=== PATIENT | male | born 1975 | race African-American/Black ===

== ENCOUNTER 2016-11-04 10:36 | Inpatient (IN) | payer MEDICAID ==
[~2016-11-04] VITALS: Ht 182.9 cm; Wt 71.9 kg
[2016-11-04] MEDS ORDERED: SODIUM CHLORIDE 0.9% 1,000 ML IVB ONE (10:53)
[2016-11-04] MEDS ORDERED: ONDANSETRON HCL 4 MG/2 ML VIAL IV ONE ×2 (11:00→17:15)
[2016-11-04] MEDS ORDERED: MORPHINE SULFATE 4 MG/ML SYRG IV ONE (11:00)
[2016-11-04 11:14] LABS: Basophils # (auto) 0 uL; Eosinophils # (auto) 0 uL; Hematocrit 31.6 % (41.0-53.0); Lymphocytes # (auto) 0.5 uL; Lymphocytes % (auto) 2.1 % (10.0-50.0); Mean Corpuscular Hemoglobin 29.2 pg (28.0-32.0); Mean Corpuscular Hgb Conc. 31.7 g/dL (32.0-36.0); Mean Platelet Volume 8.7 fL (7.4-10.4); Monocytes % (auto) 4.4 % (0.0-12.0); Neutrophils # (auto) 21.3 uL; Neutrophils % (auto) 93.5 % (37.0-80.0); Platelet Count (auto) 606 10^3/uL (140-450); Red Cell Distribution Width 15.4 % (11.6-16.0); SUSPECT VIEW TRANSMISSION; White Blood Cell 22.8 10^3/uL (4.4-10.8)
[2016-11-04] MEDS ORDERED: PIPERACILLIN-TAZOB 3.375GM 100 ML IV ONE ×2 (11:30→20:23)
[2016-11-04 11:37] LABS: INR 1.06 (0.9-1.15); Prothrombin Time 10.9 sec (9.37-12.3)
[2016-11-04 11:41] LABS: Albumin 3.2 g/dL (3.4-5.0); BUN/Creatinine Ratio 7.8; Bilirubin, Total 0.6 mg/dL (0.2-1.0); Calcium 9.3 mg/dL (8.5-10.1); Magnesium 2.4 mg/dL (1.6-2.6); Potassium 3.9 mmol/L (3.5-5.1); Total Protein 6.7 g/dL (6.4-8.2)
[2016-11-04 11:54] LABS: Lactic Acid 6.1 mmol/L (0.4-2.0)
[2016-11-04 11:56] LABS: REFLEX LACTIC ACID YES OR NO YES
[2016-11-04] MEDS ORDERED: SODIUM CHLORIDE 0.9% 1,000 ML IV ONE (12:15)
[2016-11-04 13:06] LABS: B-Type Natriuretic Peptide 17.42 pg/mL (0-100)
[2016-11-04] MEDS ORDERED: PANTOPRAZOLE SODIUM 40 MG/10 ML VIAL IV ONE (13:30)
[2016-11-04] MEDS: LACTATED RINGER'S 1,000 ML IV SCH (13:30)
[2016-11-04] MEDS ORDERED: MORPHINE SULF INJ 2 MG/ML SYRINGE 1ML IV PRN (13:30)
[2016-11-04] MEDS ORDERED: ALBUTEROL SULF 2.5 MG/0.5ML(0.5%) NEB SOLN NEB PRN (13:30)
[2016-11-04] MEDS ORDERED: NITROGLYCERIN 0.4 MG SL TAB SL PRN (13:30)
[2016-11-04] MEDS ORDERED: ONDANSETRON HCL 4 MG/2 ML VIAL ONE (14:09)
[2016-11-04] MEDS ORDERED: HYDROmorphone HCL 2 MG/ML VL ONE (14:10)
[2016-11-04] MEDS ORDERED: BUPIVACAINE 0.25% INJ 50ML VIAL ONE (14:30)
[2016-11-04] MEDS ORDERED: BUPIVACAINE W/ EPINEPH 0.25% INJ 50ML MDV ONE (14:30)
[2016-11-04] MEDS ORDERED: IOHEXOL 300 MG/ML 100ML BOTTLE IJ ONE (14:31)
[2016-11-04 14:35] LABS: Lactic Acid 3.3 mmol/L (0.4-2.0)
[2016-11-04 14:53] LABS: REFLEX LACTIC ACID YES OR NO NO
[2016-11-04] MEDS ORDERED: ROCURONIUM 10MG/ML 10ML VIAL IV ONE (15:06)
[2016-11-04] MEDS ORDERED: NEOSTIGMINE 1 MG/ML INJ (10mg/10ML VIAL) IV ONE (15:06)
[2016-11-04] MEDS ORDERED: PROPOFOL 10 MG/ML 20 ML IV ONE (15:06)
[2016-11-04] MEDS ORDERED: SUCCINYLCHOLINE CHLORIDE 20 MG/ML 10ML VIAL IV ONE (15:06)
[2016-11-04] MEDS ORDERED: fentaNYL CITRATE 100 MCG/2 ML VL ONE ×2 (15:06→16:47)
[2016-11-04] MEDS ORDERED: GLYCOPYRROLATE 0.2 MG/ML 1ML VIAL IV ONE (15:06)
[2016-11-04] MEDS ORDERED: MIDAZOLAM HCL 1MG/1ML-2 ML VIAL ONE ×2 (15:06→15:30)
[2016-11-04] MEDS ORDERED: D5W/SOD CHL 0.45%/KCL 20MEQ 1,000 ML IV SCH (17:00)
[2016-11-04] MEDS ORDERED: ePHEDrine SULFATE 50 MG/ML AMP IV PRN (17:15)
[2016-11-04] MEDS ORDERED: HYDROmorphone HCL 2 MG/ML VL IV PRN (17:15)
[2016-11-04] MEDS ORDERED: hydrALAZINE HCL 20 MG/ML VL IV PRN (17:15)
[2016-11-04] MEDS ORDERED: ACETAMINOPHEN IV 100 ML IV ONE ×2 (17:42→17:45)
[2016-11-04] MEDS ORDERED: PIPERACILLIN-TAZOB 3.375GM 100 ML IV SCH (18:00)
[2016-11-04] MEDS ORDERED: HYDROmorphone HCL 2 MG/ML VL IV ONE (18:00)
[2016-11-04 20:00] VITALS: BP 98/72
[2016-11-04] MEDS: HYDROmorphone HCL 2 MG/ML VL IV PRN ×2 (20:01→23:51)
[2016-11-04] MEDS: ONDANSETRON HCL 4 MG/2 ML VIAL IV PRN (20:39)
[2016-11-04 21:00] VITALS: BP 96/68
[2016-11-04 22:00] VITALS: BP 100/72
[2016-11-04 23:00] VITALS: BP_SYST 112; BP_SYST 120; BP_DIAS 70; BP_DIAS 76
[2016-11-05] VITALS (12 sets, daily range): BP systolic 101–135; BP diastolic 60–82
[2016-11-05] MEDS: HYDROmorphone HCL 2 MG/ML VL IV PRN ×4 (03:36→22:32)
[2016-11-05 03:44] LABS: Hematocrit 28.3 % (41.0-53.0); Hemoglobin 8.8 g/dL (13.5-17.5); Mean Corpuscular Hemoglobin 28.8 pg (28.0-32.0); Mean Corpuscular Hgb Conc. 31.2 g/dL (32.0-36.0); Mean Corpuscular Volume 92.3 fL (80.0-100.0); Mean Platelet Volume 8.7 fL (7.4-10.4); Platelet Count (auto) 432 10^3/uL (140-450); Red Cell Distribution Width 15.4 % (11.6-16.0); SUSPECT VIEW TRANSMISSION
[2016-11-05 03:51] LABS: Myelocytes % 0; Promyelocytes % 0; Reactive Lymphocytes 0
[2016-11-05 03:58] LABS: Albumin 1.9 g/dL (3.4-5.0); Calcium 8.2 mg/dL (8.5-10.1); Potassium 4.6 mmol/L (3.5-5.1)
[2016-11-05 04:00] LABS: BUN/Creatinine Ratio 10.9
[2016-11-05 04:03] LABS: Bilirubin, Total 0.5 mg/dL (0.2-1.0); Total Protein 4.8 g/dL (6.4-8.2)
[2016-11-05 04:31] LABS: Anisocytosis Slight; Metamyelocytes % 1; Ovalocytes FEW; Platelet Estimate Adequate
[2016-11-05] MEDS ORDERED: PIPERACILLIN-TAZOB 3.375GM 100 ML IV ONE (04:52)
[2016-11-05] MEDS ORDERED: cefTRIAXone 1GM/50ML D5W 50 ML IV SCH (09:00)
[2016-11-05] MEDS ORDERED: PANTOPRAZOLE SODIUM 40 MG/10 ML VIAL IV SCH (10:00)
[2016-11-05] MEDS: PANTOPRAZOLE SODIUM 40 MG/10 ML VIAL IV SCH (11:00)
[2016-11-05] MEDS: PIPERACILLIN-TAZOB 3.375GM 100 ML IV SCH ×3 (12:00→23:35)
[2016-11-05] MEDS: LACTATED RINGER'S 1,000 ML IV SCH ×2 (18:00→21:30)
[2016-11-06] VITALS (12 sets, daily range): BP systolic 109–132; BP diastolic 63–77
[2016-11-06] MEDS: HYDROmorphone HCL 2 MG/ML VL IV PRN ×5 (03:06→19:19)
[2016-11-06 03:37] LABS: Urine Bilirubin Negative (Negative); Urine Blood TRACE /uL (Negative); Urine Color Yellow (Yellow); Urine Glucose Normal (Normal); Urine Ketone TRACE (Negative); Urine Nitrite Negative (Negative); Urine RBC 4 /hpf (0 - 3); Urine Urobilinogen Normal (Negative)
[2016-11-06 05:26] LABS: DEFINITIVE VIEW TRANSMISSION; Hematocrit 21.8 % (41.0-53.0); Mean Corpuscular Hemoglobin 28.9 pg (28.0-32.0); Mean Corpuscular Hgb Conc. 32.1 g/dL (32.0-36.0); Mean Corpuscular Volume 90.2 fL (80.0-100.0); Mean Platelet Volume 9.2 fL (7.4-10.4); Platelet Count (auto) 305 10^3/uL (140-450); Red Cell Distribution Width 16.3 % (11.6-16.0); SUSPECT VIEW TRANSMISSION; White Blood Cell 24.7 10^3/uL (4.4-10.8)
[2016-11-06 05:29] LABS: BUN/Creatinine Ratio 12.8; Calcium 8.6 mg/dL (8.5-10.1)
[2016-11-06] MEDS: LACTATED RINGER'S 1,000 ML IV SCH ×3 (05:31→23:30)
[2016-11-06] MEDS: PIPERACILLIN-TAZOB 3.375GM 100 ML IV SCH ×4 (05:32→23:32)
[2016-11-06 05:45] LABS: Metamyelocytes % 0; Myelocytes % 0; Promyelocytes % 0; Reactive Lymphocytes 0
[2016-11-06 07:36] LABS: Anisocytosis Slight; Platelet Estimate Adequate
[2016-11-06] MEDS: PANTOPRAZOLE SODIUM 40 MG/10 ML VIAL IV SCH (10:25)
[2016-11-06] MEDS ORDERED: FUROSEMIDE 20 MG/2 ML VIAL IV ONE (11:30)
[2016-11-06] MEDS: ONDANSETRON HCL 4 MG/2 ML VIAL IV PRN (12:18)
[2016-11-06] MEDS: PROMETHAZINE HCL 25 MG/ML 1ML IV PRN (17:05)
[2016-11-06] MEDS ORDERED: ACETAMINOPHEN 650 MG RECT SUPP PR ONE (19:15)
[2016-11-07] MEDS: HYDROmorphone HCL 2 MG/ML VL IV PRN ×7 (00:05→22:38)
[2016-11-07 05:00] VITALS: BP 133/72
[2016-11-07] MEDS: PIPERACILLIN-TAZOB 3.375GM 100 ML IV SCH ×3 (05:41→18:00)
[2016-11-07] MEDS: LACTATED RINGER'S 1,000 ML IV SCH ×2 (05:42→19:34)
[2016-11-07 06:06] LABS: DEFINITIVE VIEW TRANSMISSION; Hematocrit 26.5 % (41.0-53.0); Hemoglobin 8.8 g/dL (13.5-17.5); Mean Corpuscular Hemoglobin 29.4 pg (28.0-32.0); Mean Corpuscular Hgb Conc. 33.1 g/dL (32.0-36.0); Mean Corpuscular Volume 88.7 fL (80.0-100.0); Mean Platelet Volume 8.7 fL (7.4-10.4); Platelet Count (auto) 364 10^3/uL (140-450); Red Cell Distribution Width 16.6 % (11.6-16.0); SUSPECT VIEW TRANSMISSION
[2016-11-07 06:29] LABS: Metamyelocytes % 0; Myelocytes % 0; Promyelocytes % 0; Reactive Lymphocytes 0
[2016-11-07 06:35] LABS: BUN/Creatinine Ratio 13.4; Potassium 3.3 mmol/L (3.5-5.1)
[2016-11-07 07:20] VITALS: BP 144/81
[2016-11-07 07:50] LABS: Platelet Estimate Adequate; RBC Morphology Normal
[2016-11-07] MEDS: PANTOPRAZOLE SODIUM 40 MG/10 ML VIAL IV SCH (08:34)
[2016-11-07] MEDS: PROMETHAZINE HCL 25 MG/ML 1ML IV PRN ×4 (08:34→21:11)
[2016-11-07] MEDS ORDERED: IOHEXOL 300 MG/ML 100ML BOTTLE IJ ONE (11:13)
[2016-11-07] MEDS ORDERED: ACETAMINOPHEN 650 MG RECT SUPP PR PRN (11:15)
[2016-11-07] MEDS ORDERED: POTASSIUM CHLORIDE 40 MEQ, LIDOCAINE 1% (LOCAL ANESTH.) 4 ML in SODIUM CHL 0.9% 250 ML IV ONE (11:45)
[2016-11-07 12:00] VITALS: BP 139/87
[2016-11-07] MEDS ORDERED: LIDOCAINE 2%HCL (LOCAL ANESTH.) INJ 20ML MDV ONE (14:28)
[2016-11-07] MEDS ORDERED: MIDAZOLAM HCL 5 MG/ML-1ML VIAL ONE (14:35)
[2016-11-07] MEDS ORDERED: fentaNYL CITRATE 100 MCG/2 ML VL ONE (14:35)
[2016-11-07] MEDS ORDERED: fentaNYL CITRATE 100 MCG/2 ML VL IV ONE (15:45)
[2016-11-07 16:54] VITALS: BP 138/92
[2016-11-07 22:00] VITALS: BP 142/79
[2016-11-08] VITALS (7 sets, daily range): BP systolic 128–148; BP diastolic 68–94
[2016-11-08] MEDS: PIPERACILLIN-TAZOB 3.375GM 100 ML IV SCH ×4 (00:11→19:01)
[2016-11-08] MEDS: HYDROmorphone HCL 2 MG/ML VL IV PRN ×7 (01:34→23:02)
[2016-11-08] MEDS: PROMETHAZINE HCL 25 MG/ML 1ML IV PRN ×6 (01:35→23:03)
[2016-11-08] MEDS: LACTATED RINGER'S 1,000 ML IV SCH ×2 (05:45→14:28)
[2016-11-08 06:13] LABS: Basophils # (auto) 0 uL; Basophils % (auto) 0.1 % (0.0-2.0); DEFINITIVE VIEW TRANSMISSION; Eosinophils # (auto) 0 uL; Eosinophils % (auto) 0.1 % (0.0-7.0); Hematocrit 26.5 % (41.0-53.0); Hemoglobin 8.6 g/dL (13.5-17.5); Lymphocytes % (auto) 5.5 % (10.0-50.0); Mean Corpuscular Hemoglobin 28.7 pg (28.0-32.0); Mean Corpuscular Hgb Conc. 32.6 g/dL (32.0-36.0); Mean Platelet Volume 8.4 fL (7.4-10.4); Monocytes # (auto) 1.6 uL; Monocytes % (auto) 8.9 % (0.0-12.0); Neutrophils # (auto) 15.8 uL; Neutrophils % (auto) 85.4 % (37.0-80.0); Platelet Count (auto) 365 10^3/uL (140-450); Red Cell Distribution Width 16.6 % (11.6-16.0); SUSPECT VIEW TRANSMISSION; White Blood Cell 18.5 10^3/uL (4.4-10.8)
[2016-11-08 06:36] LABS: Albumin 1.6 g/dL (3.4-5.0); Calcium 8.6 mg/dL (8.5-10.1); Potassium 3.4 mmol/L (3.5-5.1)
[2016-11-08 06:38] LABS: BUN/Creatinine Ratio 15.1
[2016-11-08 06:41] LABS: Total Protein 5.6 g/dL (6.4-8.2)
[2016-11-08] MEDS: PANTOPRAZOLE SODIUM 40 MG/10 ML VIAL IV SCH (10:01)
[2016-11-08] MEDS ORDERED: PPN PER PHARMACY 0 ML IV SCH (11:15)
[2016-11-08 11:55] LABS: Magnesium 2.6 mg/dL (1.6-2.6); Phosphorus 3.6 mg/dL (2.5-4.90)
[2016-11-08] MEDS ORDERED: POTASSIUM CHLORIDE 40 MEQ, LIDOCAINE 1% (LOCAL ANESTH.) 4 ML in SODIUM CHL 0.9% 250 ML IV ONE (13:00)
[2016-11-08] MEDS ORDERED: PPN PER PHARMACY IV NR ×6 (20:00)
[2016-11-09] VITALS (7 sets, daily range): BP systolic 132–142; BP diastolic 79–88
[2016-11-09] MEDS ORDERED: DEXTROSE (50%) 50ML SYRG IV SCH
[2016-11-09] MEDS: PROMETHAZINE HCL 25 MG/ML 1ML IV PRN ×6 (02:59→23:14)
[2016-11-09] MEDS: HYDROmorphone HCL 2 MG/ML VL IV PRN ×6 (02:59→23:13)
[2016-11-09 05:56] LABS: Basophils # (auto) 0 uL; Basophils % (auto) 0.1 % (0.0-2.0); DEFINITIVE VIEW TRANSMISSION; Eosinophils # (auto) 0.1 uL; Eosinophils % (auto) 0.5 % (0.0-7.0); Hemoglobin 8.3 g/dL (13.5-17.5); Lymphocytes # (auto) 1.5 uL; Lymphocytes % (auto) 10.1 % (10.0-50.0); Mean Corpuscular Hemoglobin 28.3 pg (28.0-32.0); Mean Corpuscular Hgb Conc. 31.9 g/dL (32.0-36.0); Mean Corpuscular Volume 88.6 fL (80.0-100.0); Mean Platelet Volume 8.4 fL (7.4-10.4); Monocytes # (auto) 1.5 uL; Neutrophils # (auto) 11.6 uL; Neutrophils % (auto) 79.3 % (37.0-80.0); Platelet Count (auto) 363 10^3/uL (140-450); Red Cell Distribution Width 17.3 % (11.6-16.0); White Blood Cell 14.6 10^3/uL (4.4-10.8)
[2016-11-09] MEDS: PIPERACILLIN-TAZOB 3.375GM 100 ML IV SCH ×4 (05:58→19:18)
[2016-11-09] MEDS: InsuLIN REG 1unit/0.01ml Soln (100units/ml) SC SCH ×2 (06:00)
[2016-11-09] MEDS: ACCU-CHEK COMFORT CURVE STRIP VI SCH ×3 (06:00→11:38)
[2016-11-09 06:27] LABS: Albumin 1.7 g/dL (3.4-5.0); BUN/Creatinine Ratio 19.5; Bilirubin, Total 0.7 mg/dL (0.2-1.0); Calcium 8.8 mg/dL (8.5-10.1); Magnesium 2.5 mg/dL (1.6-2.6); Phosphorus 2.7 mg/dL (2.5-4.90); Potassium 3.4 mmol/L (3.5-5.1); Total Protein 5.8 g/dL (6.4-8.2)
[2016-11-09] MEDS ORDERED: POTASSIUM CHLORIDE 40 MEQ, LIDOCAINE 1% (LOCAL ANESTH.) 4 ML in SODIUM CHL 0.9% 250 ML IV ONE (10:00)
[2016-11-09] MEDS: PANTOPRAZOLE SODIUM 40 MG/10 ML VIAL IV SCH (11:37)
[2016-11-09] MEDS: LACTATED RINGER'S 1,000 ML IV SCH (15:16)
[2016-11-09] MEDS ORDERED: ALBUTEROL SULF 2.5 MG/0.5ML(0.5%) NEB SOLN ONE (17:47)
[2016-11-09] MEDS ORDERED: PPN PER PHARMACY IV NR ×9 (20:00)
[2016-11-10] MEDS: PIPERACILLIN-TAZOB 3.375GM 100 ML IV SCH ×5 (00:35→23:27)
[2016-11-10] MEDS: HYDROmorphone HCL 2 MG/ML VL IV PRN ×6 (03:12→21:00)
[2016-11-10] MEDS: PROMETHAZINE HCL 25 MG/ML 1ML IV PRN ×5 (03:13→21:00)
[2016-11-10 04:38] VITALS: BP 142/82
[2016-11-10 06:02] LABS: Basophils # (auto) 0 uL; Basophils % (auto) 0.1 % (0.0-2.0); Eosinophils # (auto) 0.2 uL; Eosinophils % (auto) 1.3 % (0.0-7.0); Hematocrit 30.4 % (41.0-53.0); Hemoglobin 9.4 g/dL (13.5-17.5); Lymphocytes # (auto) 1.4 uL; Lymphocytes % (auto) 9.9 % (10.0-50.0); Mean Corpuscular Hemoglobin 27.8 pg (28.0-32.0); Mean Corpuscular Volume 89.6 fL (80.0-100.0); Mean Platelet Volume 8.9 fL (7.4-10.4); Monocytes # (auto) 1.4 uL; Monocytes % (auto) 9.7 % (0.0-12.0); Neutrophils # (auto) 11.4 uL; Platelet Count (auto) 380 10^3/uL (140-450); White Blood Cell 14.4 10^3/uL (4.4-10.8)
[2016-11-10 06:14] LABS: BUN/Creatinine Ratio 4.9; Calcium 8.7 mg/dL (8.5-10.1); Potassium 3.8 mmol/L (3.5-5.1)
[2016-11-10 07:40] VITALS: BP 129/90
[2016-11-10 08:00] VITALS: BP 129/90
[2016-11-10] MEDS: PANTOPRAZOLE SODIUM 40 MG/10 ML VIAL IV SCH (09:25)
[2016-11-10 13:19] VITALS: BP 113/74
[2016-11-10] MEDS: LACTATED RINGER'S 1,000 ML IV SCH (13:30)
[2016-11-10 15:59] VITALS: BP 131/85
[2016-11-10] MEDS ORDERED: BOOST PLUS 8 ounce PO SCH (18:00)
[2016-11-10] MEDS: Boost Breeze 8 Ounces PO SCH (18:00)
[2016-11-10 22:13] VITALS: BP 126/84
[2016-11-11] VITALS (8 sets, daily range): BP systolic 108–127; BP diastolic 61–84
[2016-11-11] MEDS: HYDROmorphone HCL 2 MG/ML VL IV PRN ×3 (03:00→06:00)
[2016-11-11] MEDS: PIPERACILLIN-TAZOB 3.375GM 100 ML IV SCH ×3 (05:59→18:42)
[2016-11-11 06:01] LABS: Basophils # (auto) 0 uL; DEFINITIVE VIEW TRANSMISSION; Eosinophils # (auto) 0 uL; Eosinophils % (auto) 0.2 % (0.0-7.0); Hematocrit 33.5 % (41.0-53.0); Hemoglobin 10.5 g/dL (13.5-17.5); Lymphocytes # (auto) 1.7 uL; Lymphocytes % (auto) 6.3 % (10.0-50.0); Mean Corpuscular Hemoglobin 27.6 pg (28.0-32.0); Mean Corpuscular Hgb Conc. 31.4 g/dL (32.0-36.0); Mean Corpuscular Volume 87.8 fL (80.0-100.0); Mean Platelet Volume 9.4 fL (7.4-10.4); Monocytes # (auto) 2.1 uL; Monocytes % (auto) 8.1 % (0.0-12.0); Neutrophils # (auto) 22.6 uL; Neutrophils % (auto) 85.4 % (37.0-80.0); Platelet Count (auto) 443 10^3/uL (140-450); Red Cell Distribution Width 17.3 % (11.6-16.0); SUSPECT VIEW TRANSMISSION; White Blood Cell 26.5 10^3/uL (4.4-10.8)
[2016-11-11] MEDS: LACTATED RINGER'S 1,000 ML IV SCH ×3 (06:10→23:30)
[2016-11-11] MEDS: Boost Breeze 8 Ounces PO SCH ×2 (06:31→18:00)
[2016-11-11] MEDS: HYDROcodone-ACET 5/325MG TAB PO PRN ×2 (10:00→16:21)
[2016-11-11] MEDS: PANTOPRAZOLE SODIUM 40 MG/10 ML VIAL IV SCH (10:00)
[2016-11-11] MEDS ORDERED: GASTROGRAFIN 30 ML SOL ONE (10:59)
[2016-11-11] MEDS ORDERED: VANCOMYCIN PER PHARMACY 0 MG IV SCH (11:00)
[2016-11-11] MEDS: VANCOMYCIN 1GM/250ML D5W 250 ML IV SCH ×2 (12:36→20:08)
[2016-11-11] MEDS ORDERED: IOHEXOL 300 MG/ML 100ML BOTTLE IJ ONE (13:57)
[2016-11-12] MEDS: HYDROcodone-ACET 5/325MG TAB PO PRN ×2 (00:27→19:47)
[2016-11-12] MEDS: PIPERACILLIN-TAZOB 3.375GM 100 ML IV SCH ×5 (01:44→21:05)
[2016-11-12] MEDS: VANCOMYCIN 1GM/250ML D5W 250 ML IV SCH ×3 (04:05→19:57)
[2016-11-12 05:30] VITALS: BP 120/76
[2016-11-12 07:00] LABS: DEFINITIVE VIEW TRANSMISSION; Hematocrit 28.5 % (41.0-53.0); Hemoglobin 8.9 g/dL (13.5-17.5); Mean Corpuscular Hemoglobin 27.7 pg (28.0-32.0); Mean Corpuscular Hgb Conc. 31.3 g/dL (32.0-36.0); Mean Corpuscular Volume 88.6 fL (80.0-100.0); Mean Platelet Volume 9.8 fL (7.4-10.4); Platelet Count (auto) 434 10^3/uL (140-450); Red Cell Distribution Width 17.2 % (11.6-16.0); SUSPECT VIEW TRANSMISSION; White Blood Cell 24.5 10^3/uL (4.4-10.8)
[2016-11-12 07:07] LABS: Calcium 8.5 mg/dL (8.5-10.1); Potassium 3.5 mmol/L (3.5-5.1)
[2016-11-12 07:10] LABS: Albumin 1.6 g/dL (3.4-5.0); BUN/Creatinine Ratio 9.2
[2016-11-12 07:19] LABS: Metamyelocytes % 0; Myelocytes % 0; Promyelocytes % 0; Reactive Lymphocytes 0
[2016-11-12 08:00] VITALS: BP 120/80
[2016-11-12] MEDS: Boost Breeze 8 Ounces PO SCH ×2 (08:00→18:00)
[2016-11-12 08:38] LABS: Bilirubin, Total 0.6 mg/dL (0.2-1.0)
[2016-11-12 08:45] VITALS: BP 123/82
[2016-11-12] MEDS: LACTATED RINGER'S 1,000 ML IV SCH ×2 (09:30→19:30)
[2016-11-12 10:10] LABS: Hypochromia Slight; Platelet Estimate Adequate
[2016-11-12] MEDS: PANTOPRAZOLE SODIUM 40 MG/10 ML VIAL IV SCH (10:18)
[2016-11-12] MEDS ORDERED: LIDOCAINE 2%HCL (LOCAL ANESTH.) INJ 20ML MDV ONE (11:24)
[2016-11-12] MEDS ORDERED: fentaNYL CITRATE 100 MCG/2 ML VL ONE (11:31)
[2016-11-12] MEDS ORDERED: MIDAZOLAM HCL 1MG/1ML-2 ML VIAL ONE (11:31)
[2016-11-12 13:06] VITALS: BP 125/63
[2016-11-12 17:00] VITALS: BP 121/79
[2016-11-12 21:16] VITALS: BP 119/62
[2016-11-13] MEDS: PIPERACILLIN-TAZOB 3.375GM 100 ML IV SCH ×2 (02:48→08:33)
[2016-11-13] MEDS: HYDROcodone-ACET 5/325MG TAB PO PRN (02:48)
[2016-11-13] MEDS: VANCOMYCIN 1GM/250ML D5W 250 ML IV SCH ×3 (04:21→19:59)
[2016-11-13 04:55] VITALS: BP 126/72
[2016-11-13] MEDS: LACTATED RINGER'S 1,000 ML IV SCH ×2 (05:30→16:59)
[2016-11-13 07:17] LABS: Basophils # (auto) 0 uL; Basophils % (auto) 0.3 % (0.0-2.0); DEFINITIVE VIEW TRANSMISSION; Eosinophils # (auto) 0 uL; Eosinophils % (auto) 0.2 % (0.0-7.0); Hemoglobin 8.3 g/dL (13.5-17.5); Lymphocytes # (auto) 1.2 uL; Lymphocytes % (auto) 8.7 % (10.0-50.0); Mean Corpuscular Hemoglobin 27.1 pg (28.0-32.0); Mean Corpuscular Hgb Conc. 30.5 g/dL (32.0-36.0); Mean Corpuscular Volume 88.8 fL (80.0-100.0); Monocytes # (auto) 1.2 uL; Monocytes % (auto) 9.1 % (0.0-12.0); Neutrophils # (auto) 11.2 uL; Neutrophils % (auto) 81.7 % (37.0-80.0); Platelet Count (auto) 456 10^3/uL (140-450); Red Cell Distribution Width 16.6 % (11.6-16.0); White Blood Cell 13.7 10^3/uL (4.4-10.8)
[2016-11-13 08:23] VITALS: BP 125/70
[2016-11-13] MEDS: Boost Breeze 8 Ounces PO SCH ×2 (08:29→18:00)
[2016-11-13 08:54] VITALS: BP 125/70
[2016-11-13 12:45] VITALS: BP 120/67
[2016-11-13] MEDS: metroNIDAZOLE 500 MG TAB PO SCH ×2 (14:36→21:34)
[2016-11-13 16:43] VITALS: BP 134/72
[2016-11-13 20:44] VITALS: BP 106/56
[2016-11-13] MEDS: HYDROmorphone HCL 2 MG/ML VL IV PRN (23:49)
[2016-11-14] VITALS (7 sets, daily range): BP systolic 116–131; BP diastolic 69–88
[2016-11-14] MEDS: LACTATED RINGER'S 1,000 ML IV SCH ×3 (01:30→13:09)
[2016-11-14] MEDS: VANCOMYCIN 1GM/250ML D5W 250 ML IV SCH ×3 (03:46→21:14)
[2016-11-14] MEDS: metroNIDAZOLE 500 MG TAB PO SCH ×3 (05:34→22:53)
[2016-11-14 06:49] LABS: Basophils # (auto) 0 uL; Basophils % (auto) 0.3 % (0.0-2.0); Eosinophils # (auto) 0 uL; Eosinophils % (auto) 0.4 % (0.0-7.0); Hematocrit 28.3 % (41.0-53.0); Hemoglobin 8.7 g/dL (13.5-17.5); Lymphocytes # (auto) 1.5 uL; Mean Corpuscular Hemoglobin 27.1 pg (28.0-32.0); Mean Corpuscular Hgb Conc. 30.8 g/dL (32.0-36.0); Mean Corpuscular Volume 87.9 fL (80.0-100.0); Mean Platelet Volume 9.5 fL (7.4-10.4); Monocytes # (auto) 0.9 uL; Monocytes % (auto) 8.8 % (0.0-12.0); Neutrophils # (auto) 8.2 uL; Neutrophils % (auto) 76.5 % (37.0-80.0); Platelet Count (auto) 614 10^3/uL (140-450); Red Cell Distribution Width 16.8 % (11.6-16.0); SUSPECT VIEW TRANSMISSION; White Blood Cell 10.7 10^3/uL (4.4-10.8)
[2016-11-14 07:09] LABS: Potassium 3.5 mmol/L (3.5-5.1)
[2016-11-14 07:25] LABS: Albumin 1.8 g/dL (3.4-5.0); BUN/Creatinine Ratio 3.5; Calcium 8.8 mg/dL (8.5-10.1)
[2016-11-14 07:28] LABS: Bilirubin, Total 0.3 mg/dL (0.2-1.0); Total Protein 6.4 g/dL (6.4-8.2)
[2016-11-14] MEDS: Boost Breeze 8 Ounces PO SCH ×2 (08:00→18:05)
[2016-11-14] MEDS: PANTOPRAZOLE 40 MG TAB PO SCH (11:16)
[2016-11-14] MEDS: cefTRIAXone 1GM/50ML D5W 50 ML IV SCH (11:16)
[2016-11-14] MEDS: HYDROmorphone HCL 2 MG/ML VL IV PRN (21:07)
[2016-11-14] MEDS ORDERED: LEVOTHYROXINE SODIUM 50 MCG TAB PO SCH (22:00)
[2016-11-15 01:25] VITALS: BP 124/88
[2016-11-15] MEDS: HYDROmorphone HCL 2 MG/ML VL IV PRN ×2 (03:16→20:21)
[2016-11-15] MEDS: LACTATED RINGER'S 1,000 ML IV SCH (03:17)
[2016-11-15] MEDS: VANCOMYCIN 1GM/250ML D5W 250 ML IV SCH ×3 (04:03→20:21)
[2016-11-15 05:39] VITALS: BP 125/80
[2016-11-15] MEDS: metroNIDAZOLE 500 MG TAB PO SCH ×3 (06:06→22:15)
[2016-11-15 06:29] LABS: Basophils # (auto) 0.1 uL; Basophils % (auto) 0.6 % (0.0-2.0); DEFINITIVE VIEW TRANSMISSION; Eosinophils # (auto) 0 uL; Eosinophils % (auto) 0.4 % (0.0-7.0); Hematocrit 28.5 % (41.0-53.0); Hemoglobin 8.6 g/dL (13.5-17.5); Lymphocytes # (auto) 1.5 uL; Lymphocytes % (auto) 12.7 % (10.0-50.0); Mean Corpuscular Hemoglobin 26.9 pg (28.0-32.0); Mean Corpuscular Hgb Conc. 30.1 g/dL (32.0-36.0); Mean Corpuscular Volume 89.1 fL (80.0-100.0); Mean Platelet Volume 9.4 fL (7.4-10.4); Monocytes # (auto) 0.9 uL; Monocytes % (auto) 7.8 % (0.0-12.0); Neutrophils % (auto) 78.5 % (37.0-80.0); Platelet Count (auto) 654 10^3/uL (140-450); Red Cell Distribution Width 17.3 % (11.6-16.0); SUSPECT VIEW TRANSMISSION; White Blood Cell 11.5 10^3/uL (4.4-10.8)
[2016-11-15] MEDS: Boost Breeze 8 Ounces PO SCH ×2 (08:00→18:00)
[2016-11-15 08:38] VITALS: BP 118/78
[2016-11-15] MEDS: cefTRIAXone 1GM/50ML D5W 50 ML IV SCH (08:41)
[2016-11-15] MEDS: HYDROcodone-ACET 5/325MG TAB PO PRN (08:51)
[2016-11-15 12:36] VITALS: BP 117/78
[2016-11-15] MEDS: PANTOPRAZOLE 40 MG TAB PO SCH (15:07)
[2016-11-15 16:31] VITALS: BP 120/77
[2016-11-15 21:30] VITALS: BP 116/82
[2016-11-16] MEDS: VANCOMYCIN 1GM/250ML D5W 250 ML IV SCH (04:21)
[2016-11-16] MEDS: HYDROmorphone HCL 2 MG/ML VL IV PRN (04:52)
[2016-11-16 05:00] VITALS: BP 115/80
[2016-11-16] MEDS: metroNIDAZOLE 500 MG TAB PO SCH ×3 (05:44→22:38)
[2016-11-16 07:50] LABS: Albumin 2.2 g/dL (3.4-5.0); BUN/Creatinine Ratio 4.6; Calcium 9.3 mg/dL (8.5-10.1); Potassium 3.8 mmol/L (3.5-5.1)
[2016-11-16 07:52] LABS: Bilirubin, Total 0.3 mg/dL (0.2-1.0); Total Protein 7.2 g/dL (6.4-8.2)
[2016-11-16] MEDS: Boost Breeze 8 Ounces PO SCH ×2 (08:00→18:00)
[2016-11-16] MEDS: cefTRIAXone 1GM/50ML D5W 50 ML IV SCH (08:37)
[2016-11-16] MEDS: PANTOPRAZOLE 40 MG TAB PO SCH (08:37)
[2016-11-16] MEDS: HYDROcodone-ACET 5/325MG TAB PO PRN (08:41)
[2016-11-16 08:42] VITALS: BP 118/69
[2016-11-16 12:45] VITALS: BP 125/89
[2016-11-16 16:55] VITALS: BP 119/74
[2016-11-16 22:00] VITALS: BP 117/80
[2016-11-17] MEDS: HYDROmorphone HCL 2 MG/ML VL IV PRN (00:05)
[2016-11-17 05:07] VITALS: BP 109/68
[2016-11-17] MEDS: metroNIDAZOLE 500 MG TAB PO SCH ×2 (06:28→14:00)
[2016-11-17 07:00] VITALS: BP 123/72
[2016-11-17 07:13] LABS: BUN/Creatinine Ratio 6.1; Calcium 9.6 mg/dL (8.5-10.1)
[2016-11-17] MEDS: Boost Breeze 8 Ounces PO SCH (09:11)
[2016-11-17 09:54] LABS: Basophils # (auto) 0.1 uL; Basophils % (auto) 0.5 % (0.0-2.0); DEFINITIVE VIEW TRANSMISSION; Eosinophils # (auto) 0.1 uL; Eosinophils % (auto) 0.6 % (0.0-7.0); Hematocrit 30.7 % (41.0-53.0); Hemoglobin 9.6 g/dL (13.5-17.5); Lymphocytes # (auto) 2.1 uL; Lymphocytes % (auto) 19.6 % (10.0-50.0); Mean Corpuscular Hemoglobin 27.5 pg (28.0-32.0); Mean Corpuscular Hgb Conc. 31.1 g/dL (32.0-36.0); Mean Corpuscular Volume 88.4 fL (80.0-100.0); Mean Platelet Volume 9.1 fL (7.4-10.4); Monocytes % (auto) 8.8 % (0.0-12.0); Neutrophils # (auto) 7.6 uL; Neutrophils % (auto) 70.5 % (37.0-80.0); Red Cell Distribution Width 16.9 % (11.6-16.0); SUSPECT VIEW TRANSMISSION; White Blood Cell 10.8 10^3/uL (4.4-10.8)
[2016-11-17 09:57] LABS: Platelet Count (auto) 811 10^3/uL (140-450)
[2016-11-17] MEDS: PANTOPRAZOLE 40 MG TAB PO SCH (10:00)
[2016-11-17] MEDS: cefTRIAXone 1GM/50ML D5W 50 ML IV SCH (10:00)
[2016-11-17 10:20] LABS: Large Platelets FEW
[2016-11-17 10:21] LABS: Platelet Estimate Markedly Increased; RBC Morphology Normal
[2016-11-17 11:08] VITALS: BP 123/72
[2016-11-17 12:00] VITALS: BP 123/72
== END 2016-11-17 15:00 | disposition home or self-care (01) | DRG 710 ==
LOC: ER 10:42 → TELE 10:43 → ER 13:04 → ICU WEST 18:48 → TELE-EAST 11-05 16:16 → EAST 11-11 09:13
PROVIDERS: ADMIT Internal Medicine; ATTEND Internal Medicine
PROC: 0DQ90ZZ Repair Duodenum, Open Approach (ICD-10-PCS; 2016-11-04)
PROC: 0W9G0ZZ Drainage of Peritoneal Cavity, Open Approach (ICD-10-PCS; principal; 2016-11-04 15:10)
PROC: 30233N1 Transfusion of Nonautologous Red Blood Cells into Peripheral Vein, Percutaneous Approach (ICD-10-PCS; 2016-11-06)
PROC: 0F9130Z Drainage of Right Lobe Liver with Drainage Device, Percutaneous Approach (ICD-10-PCS; 2016-11-11)
DX: A41.9 Sepsis, unspecified organism (principal); K65.1 Peritoneal abscess; K26.5 Chronic or unspecified duodenal ulcer with perforation; E44.0 Moderate protein-calorie malnutrition; K66.8 Other specified disorders of peritoneum; E87.6 Hypokalemia; D64.9 Anemia, unspecified; J45.909 Unspecified asthma, uncomplicated; Z88.8 Allergy status to other drugs, medicaments and biological substances; Z87.11 Personal history of peptic ulcer disease; Z68.21 Body mass index [BMI] 21.0-21.9, adult
CPT/HCPCS: 10022; 36415; 51702; 71010; 72192; 74177; 75989; 77012; 80048; 80053; 80202; 81001; 82040; 82962; 83036; 83605; 83735; 83880; 84100; 84478; 84484; 85007; 85025; 85027; 85049; 85610; 85730; 86850; 86900; 86901; 86920; 87040; 87070; 87081; 93005; 96361; 96365; 96366; 96375; 97116; 97530; 99291; C1729; C9113; J0131; J0330; J0696; J1815; J2001; J2250; J2405; J2543; J2704; J3490

== ENCOUNTER 2017-02-19 10:37 | Inpatient (IN) | payer MEDICAID ==
[~2017-02-19] VITALS: Ht 185.4 cm; Wt 83.1 kg
[2017-02-19 11:17] LABS: Basophils # (auto) 0 uL; Basophils % (auto) 0.1 % (0.0-2.0); DEFINITIVE VIEW TRANSMISSION; Eosinophils # (auto) 0 uL; Eosinophils % (auto) 0.1 % (0.0-7.0); Hematocrit 39.5 % (41.0-53.0); Hemoglobin 12.4 g/dL (13.5-17.5); Lymphocytes # (auto) 2.1 uL; Lymphocytes % (auto) 16.5 % (10.0-50.0); Mean Corpuscular Hgb Conc. 31.5 g/dL (32.0-36.0); Mean Corpuscular Volume 79.4 fL (80.0-100.0); Mean Platelet Volume 11.6 fL (7.4-10.4); Monocytes # (auto) 0.5 uL; Monocytes % (auto) 3.7 % (0.0-12.0); Neutrophils # (auto) 9.9 uL; Neutrophils % (auto) 79.6 % (37.0-80.0); Platelet Count (auto) 212 10^3/uL (140-450); Red Cell Distribution Width 18.1 % (11.6-16.0); SUSPECT VIEW TRANSMISSION; White Blood Cell 12.4 10^3/uL (4.4-10.8)
[2017-02-19 12:21] LABS: Albumin 3.8 g/dL (3.4-5.0); BUN/Creatinine Ratio 9.4; Bilirubin, Total 0.6 mg/dL (0.2-1.0); Calcium 9.4 mg/dL (8.5-10.1); Total Protein 7.9 g/dL (6.4-8.2)
[2017-02-19 12:28] LABS: Potassium 2.4 mmol/L (3.5-5.1)
[2017-02-19] MEDS ORDERED: POTASSIUM CHL 10% (20 MEQ/15ML) ORAL SOLN PO ONE (13:00)
[2017-02-19] MEDS: POTASSIUM CHL 20MEQ/100ML 100 ML IV SCH ×2 (13:52→16:09)
[2017-02-19] MEDS ORDERED: SODIUM CHLORIDE 0.9% 1,000 ML IV ONE ×2 (14:24)
[2017-02-19] MEDS ORDERED: PIPERACILLIN-TAZOB 3.375GM 100 ML IV ONE (14:30)
[2017-02-19] MEDS ORDERED: metroNIDAZOLE 500MG/100ML 100 ML IV ONE (14:30)
[2017-02-19] MEDS ORDERED: TEMAZEPAM 15 MG CAP PO PRN (14:45)
[2017-02-19] MEDS ORDERED: MORPHINE SULF INJ 2 MG/ML SYRINGE 1ML IV PRN (14:45)
[2017-02-19] MEDS ORDERED: POTASSIUM CHL 20 Meq TABLET PO ONE (14:45)
[2017-02-19] MEDS ORDERED: ALBUTEROL SULF 2.5 MG/0.5ML(0.5%) NEB SOLN NEB PRN (14:45)
[2017-02-19] MEDS ORDERED: LORazepam 0.5 MG TAB PO PRN (14:45)
[2017-02-19] MEDS ORDERED: FAMOTIDINE (10MG/ML) 2ML VL IV SCH (14:45)
[2017-02-19] MEDS ORDERED: cefTRIAXone 1GM/50ML D5W 50 ML IV ONE (14:45)
[2017-02-19] MEDS ORDERED: POTASSIUM CHL 20MEQ/100ML 100 ML IV SCH (14:45)
[2017-02-19] MEDS ORDERED: ACETAMINOPHEN 500 MG TAB PO PRN (14:45)
[2017-02-19] MEDS ORDERED: NITROGLYCERIN 0.4 MG SL TAB SL PRN (14:45)
[2017-02-19] MEDS ORDERED: HYDROcodone-ACET 5/325MG TAB PO PRN (14:45)
[2017-02-19] MEDS: SOD CHL 0.9%/ KCL 40MEQ 1,000 ML IV SCH ×2 (15:36→23:29)
[2017-02-19] MEDS: MORPHINE SULF INJ 2 MG/ML SYRINGE 1ML IV PRN ×2 (16:28→20:51)
[2017-02-19 18:32] VITALS: BP 157/105
[2017-02-19] MEDS: metroNIDAZOLE 500MG/100ML 100 ML IV SCH ×2 (18:38→23:30)
[2017-02-19 20:15] VITALS: BP 145/85
[2017-02-19] MEDS: PROMETHAZINE HCL 25 MG/ML 1ML IV PRN (20:38)
[2017-02-19 21:37] VITALS: BP 145/85
[2017-02-19] MEDS: PANTOPRAZOLE 40 MG TAB PO SCH (21:54)
[2017-02-20] VITALS (7 sets, daily range): BP systolic 124–151; BP diastolic 70–91
[2017-02-20] MEDS: MORPHINE SULF INJ 2 MG/ML SYRINGE 1ML IV PRN ×4 (03:42→20:10)
[2017-02-20] MEDS: metroNIDAZOLE 500MG/100ML 100 ML IV SCH ×4 (05:48→23:52)
[2017-02-20 05:54] LABS: Basophils # (auto) 0 uL; Basophils % (auto) 0.3 % (0.0-2.0); DEFINITIVE VIEW TRANSMISSION; Eosinophils # (auto) 0 uL; Eosinophils % (auto) 0.3 % (0.0-7.0); Hemoglobin 11.6 g/dL (13.5-17.5); Lymphocytes # (auto) 1.5 uL; Lymphocytes % (auto) 17.8 % (10.0-50.0); Mean Corpuscular Hemoglobin 25.1 pg (28.0-32.0); Mean Corpuscular Hgb Conc. 31.5 g/dL (32.0-36.0); Mean Corpuscular Volume 79.7 fL (80.0-100.0); Monocytes # (auto) 0.7 uL; Monocytes % (auto) 8.6 % (0.0-12.0); Neutrophils # (auto) 6.3 uL; Platelet Count (auto) 169 10^3/uL (140-450); Red Cell Distribution Width 17.9 % (11.6-16.0); SUSPECT VIEW TRANSMISSION; White Blood Cell 8.6 10^3/uL (4.4-10.8)
[2017-02-20 06:23] LABS: Albumin 3.3 g/dL (3.4-5.0); BUN/Creatinine Ratio 7.1; Calcium 8.6 mg/dL (8.5-10.1)
[2017-02-20 06:29] LABS: Bilirubin, Total 0.6 mg/dL (0.2-1.0); Total Protein 6.7 g/dL (6.4-8.2)
[2017-02-20 06:36] LABS: Potassium 2.9 mmol/L (3.5-5.1)
[2017-02-20] MEDS: PROMETHAZINE HCL 25 MG/ML 1ML IV PRN ×2 (06:53→17:17)
[2017-02-20] MEDS: SOD CHL 0.9%/ KCL 40MEQ 1,000 ML IV SCH ×2 (07:25→16:34)
[2017-02-20] MEDS: POTASSIUM CHLORIDE 20 MEQ, LIDOCAINE 1% (LOCAL ANESTH.) 2 ML in SODIUM CHL 0.9% 100 ML IV SCH ×3 (08:27→14:31)
[2017-02-20] MEDS ORDERED: SODIUM CHLORIDE LOCK 10 ML ONE (08:30)
[2017-02-20] MEDS ORDERED: diphenhdrAMINE HCL 50 MG/1 ML VL ONE (08:30)
[2017-02-20] MEDS ORDERED: LIDOCAINE VISCOUS 2% 15ML UD ONE (08:30)
[2017-02-20 08:40] LABS: INR 1.06 (0.9-1.15); Partial Thromboplastin Time 26.1 sec (22.64-33.71); Prothrombin Time 11.5 sec (9.37-12.3)
[2017-02-20] MEDS: cefTRIAXone 1GM/50ML D5W 50 ML IV SCH (08:46)
[2017-02-20] MEDS: MIDAZOLAM HCL 5 MG/ML-1ML VIAL ONE ×2 (09:56→10:00)
[2017-02-20] MEDS: fentaNYL CITRATE 100 MCG/2 ML VL ONE ×2 (09:56→10:00)
[2017-02-20] MEDS: PANTOPRAZOLE 40 MG TAB PO SCH ×2 (11:16→21:48)
[2017-02-21] MEDS: MORPHINE SULF INJ 2 MG/ML SYRINGE 1ML IV PRN ×2 (00:16→04:36)
[2017-02-21] MEDS: PROMETHAZINE HCL 25 MG/ML 1ML IV PRN (00:19)
[2017-02-21] MEDS: SOD CHL 0.9%/ KCL 40MEQ 1,000 ML IV SCH ×2 (01:25→08:25)
[2017-02-21 05:00] VITALS: BP 137/87
[2017-02-21 05:48] LABS: BUN/Creatinine Ratio 6.1; Potassium 3.6 mmol/L (3.5-5.1)
[2017-02-21] MEDS: metroNIDAZOLE 500MG/100ML 100 ML IV SCH (06:04)
[2017-02-21 08:43] VITALS: BP 132/86
[2017-02-21] MEDS: cefTRIAXone 1GM/50ML D5W 50 ML IV SCH (09:05)
[2017-02-21] MEDS ORDERED: POTASSIUM CHL 20 Meq TABLET PO ONE (10:00)
[2017-02-21] MEDS: PANTOPRAZOLE 40 MG TAB PO SCH (10:29)
[2017-02-21 11:46] VITALS: BP 132/86
[2017-02-21 12:44] VITALS: BP 131/80
== END 2017-02-21 12:30 | disposition home or self-care (01) | DRG 720 ==
LOC: ER 10:37 → TELE 15:21 → TELE-WESTW 19:35
PROVIDERS: ADMIT Internal Medicine; ATTEND Internal Medicine
PROC: 0DB68ZX Excision of Stomach, Via Natural or Artificial Opening Endoscopic, Diagnostic (ICD-10-PCS; principal; 2017-02-20 09:53)
DX: A41.9 Sepsis, unspecified organism (principal); K20.9 Esophagitis, unspecified; K29.80 Duodenitis without bleeding; E87.6 Hypokalemia; J45.909 Unspecified asthma, uncomplicated; K29.70 Gastritis, unspecified, without bleeding; K52.9 Noninfective gastroenteritis and colitis, unspecified; Z87.11 Personal history of peptic ulcer disease; Z88.8 Allergy status to other drugs, medicaments and biological substances
CPT/HCPCS: 36415; 43239; 71010; 74176; 80048; 80053; 82150; 83605; 83690; 84132; 85025; 85610; 85652; 85730; 86141; 87040; 96365; 96366; 96368; 96375; J0696; J2001; J2250; J2543; J3480; J3490

== ENCOUNTER 2018-06-30 09:06 | Emergency (ER) | payer MEDICAID ==
[~2018-06-30] VITALS: Ht 182.9 cm; Wt 86.2 kg
[2018-06-30 09:19] VITALS: BP 137/76
[2018-06-30 10:27] LABS: Basophils # (auto) 0 uL; Basophils % (auto) 0.1 % (0.0-2.0); Eosinophils # (auto) 0 uL; Hematocrit 42.2 % (41.0-53.0); Hemoglobin 14.4 g/dL (13.5-17.5); Lymphocytes % (auto) 10.1 % (10.0-50.0); Mean Corpuscular Hemoglobin 31.2 pg (28.0-32.0); Mean Corpuscular Hgb Conc. 34.1 g/dL (32.0-36.0); Mean Corpuscular Volume 91.6 fL (80.0-100.0); Monocytes # (auto) 0.7 uL; Monocytes % (auto) 6.7 % (0.0-12.0); Neutrophils # (auto) 8.3 uL; Neutrophils % (auto) 83.1 % (37.0-80.0); Nucleated Red Blood Cells % 0.1 %; Platelet Count (auto) 171 10^3/uL (140-450); Red Blood Cells 4.61 10^6/uL (4.5-5.90); Red Cell Distribution Width 14.4 % (11.8-14.3)
[2018-06-30 10:40] LABS: Urine Bacteria FEW /hpf (None Seen); Urine Blood Negative /uL (Negative); Urine Mucus FEW (None Seen); Urine Specific Gravity 1.037 (1.001-1.035); Urine WBC 7 /hpf (0 - 3)
[2018-06-30 11:01] LABS: Albumin 3.9 g/dL (3.4-5.0); BUN/Creatinine Ratio 7.8; Bilirubin, Total 0.5 mg/dL (0.2-1.0); Calcium 9.9 mg/dL (8.5-10.1)
[2018-06-30 11:11] LABS: Potassium 2.5 mmol/L (3.5-5.1)
[2018-06-30] MEDS: POTASSIUM CHL 20 Meq TABLET PO ONE (12:46)
[2018-06-30] MEDS: ONDANSETRON ODT 4 MG TAB PO ONE (12:46)
== END 2018-06-30 15:01 | disposition left against medical advice (07) ==
LOC: ER 09:08
DX: R10.9 Unspecified abdominal pain (principal); J45.909 Unspecified asthma, uncomplicated; Z88.5 Allergy status to narcotic agent; Z88.6 Allergy status to analgesic agent
CPT/HCPCS: 36415; 80053; 81001; 83690; 85025; 99284; Q0162